=== PATIENT | female | born 1985 | race Caucasian/White ===

== ENCOUNTER 2022-03-09 17:21 | Emergency (ER) | payer BC, MEDICAID, SELFPAY ==
[2022-03-09 17:22] VITALS: BP 139/82; PULSE 103; RESP 16; TEMP 37.4; O2SAT 98; BMI 41.3
--- NOTE | 2022-03-09 18:12 | EDS_ITS ---
HPI <TRACE Noriega - Last Filed: 03/09/22 18:32> History of Present Illness Chief Complaint: GI Bleed Narrative Narrative: 36-year-old female with no significant medical history presents to the emergency department with blood in her stool today. Patient states that she went this morning, there was blood on the paper, she then went several hours later there was even more blood on the paper with some streaks in her stool. Patient denies any abdominal pain. Patient denies any history of being constipated recently or anal trauma. Patient thinks that sometimes she may have a hemorrhoid however she is unsure. After the second time she said there was more blood on the toilet paper so she was concerned and is here for evaluation PFSH <TRACE Noriega - Last Filed: 03/09/22 18:32> PFSH Allergy/AdvReac Type Severity Reaction Status Date / Time Sulfa (Sulfonamide Allergy Rash Verified 03/09/22 17:22 Antibiotics) Social History Smoking Status: Never smoker ROS <TRACE Noriega - Last Filed: 03/09/22 18:32> ROS ED ROS Narrative Constitutional: Negative for fever, chills, weight loss, weakness Eyes: Negative for vision loss, vision change, double vision ENT: Negative for any sore throat, ear pain, congestion Cardiovascular: Negative for any chest pain, tightness, palpitations Respiratory: Negative for any cough, sputum production, hemoptysis, dyspnea, dyspnea on exertion, orthopnea Gastrointestinal: Negative for any abdominal pain, nausea, vomiting, diarrhea, constipation, blood in vomit. Positive for blood in stool, blood in the toilet paper : Negative for any urinary frequency, dysuria, retention, blood in urine Muscle skeletal: Negative for any muscle joint pain, stiffness, myalgias, arthralgias, neck pain, back pain Neurological: Negative for any headache, syncope, numbness or tingling, dizziness Skin: Negative for any rashes, lumps, itching, abrasions, lacerations Psychiatric: Negative for any depression, anxiety, stress, suicidal ideation, homicidal ideation Hematologic: Negative for any easy bruising, excessive bruising, easy bleeding Allergies: Negative for any eczema, hives, rash EXAM <TRACE Noriega - Last Filed: 03/09/22 18:32> Physical Exam Narrative Exam Narrative: Vital signs reviewed. HEET: Head normocephalic atraumatic, TMs clear bilaterally. Posterior pharynx is clear, moist mucous membranes. Nares clear bilaterally. Neck: Supple with no lymphadenopathy or tenderness. No signs of meningismus, negative jolt sign. Cardiac: Regular rate and rhythm no murmurs gallops or rubs, equal peripheral pulses bilaterally. Respiratory: Lungs clear to auscultation bilaterally. No chest tenderness. Abdomen: Soft, nontender, nondistended. No abdominal bruit or pulsatile masses. No hepatosplenomegaly Extremities: No peripheral edema, no signs of gross trauma or deformity. Active full range of motion of all extremities. Neuro: Cranial nerves II through XII intact, no focal neurological deficits. Skin: Clean dry and intact with no rash, purpura, petechiae, vesicles or pustules. Backs/flank: No CVA tenderness, no midline spinal tenderness, no deformity. Psych: Normal mood and affect. No SI, HI or acute psychosis. Rectal: Rectal exam was completed with a female nurse cloth seconds sorter, there is no dried blood, no active bleeding, there is no hemorrhoid, no thrombosed hemorrhoid. Minimal stool in the rectal vault, no fissure or mass felt. No bleeding at this time. Const Vital Signs: 03/09/22 17:22 03/09/22 18:38 Temperature 99.3 F H Temperature Source Temporal Pulse Rate 103 H 84 Respiratory Rate 16 18 Blood Pressure 139/82 H 136/80 H Blood Pressure Mean 101 Pulse Ox 98 Oxygen Delivery Method Room Air Positive well nourished and well developed General Appearance ED: well developed <Ryan Echeverria MD - Last Filed: 03/09/22 20:09> Physical Exam Const Vital Signs: 03/09/22 17:22 03/09/22 18:38 Temperature 99.3 F H Temperature Source Temporal Pulse Rate 103 H 84 Respiratory Rate 16 18 Blood Pressure 139/82 H 136/80 H Blood Pressure Mean 101 Pulse Ox 98 Oxygen Delivery Method Room Air MDM <TRACE Noriega - Last Filed: 03/09/22 18:32> [facility] MDM Narrative Medical decision making narrative: Patient appears well, patient appears nontoxic, vital signs are stable. Patient presents to the emergency department with concerns for rectal bleeding. At this time, patient's physical examination was grossly unremarkable. Patient rectal exam was completed, there is no signs or symptoms of any blood, dried blood, no pathology noted. Patient did have some breakdown superior to the rectum, this could be from excessive wiping. The patient did state that she wiped continuously throughout the day. I believe that some of the bleeding may have come from that. Patient will follow up with gastroenterology for any worsening symptoms. At this time, patient safe for discharge. <Ryan Echeverria MD - Last Filed: 03/09/22 20:09> [facility] MDM Narrative Medical decision making narrative: I have personally performed a face to face assessment of the patient and have reviewed the SAÚL Note. I performed a substantive portion of the visit including all aspects of the following. My pulido findings include: History is rectal bleeding Medical Decision Making nurse practitioner performed rectal examination. No gross bleeding. Use [id number] Preparation H for hemorrhoid versus anal fissure. Follow-up gastroenterology. Discharge. Other additions or changes: [None] Discharge Plan Triage Chief Complaint: GI Bleed ED Midlevel Provider: Binh Sullivan ED Provider: Ryan Echeverria Dx/Rx/DC Orders Clinical Impression: History of rectal bleeding Instructions: Understanding Rectal Bleeding, ED Lower GI Bleeding (Stable) Primary Care Provider: Lia Kowalski Referrals: Lia Kowalski MD [Primary Care Provider] - Patricio Haney DO [STAFF PHYSICIAN] - Print Language: Welsh Disposition Disposition: Home, Self Care Discharge Date/Time: 03/09/22 18:38
[2022-03-09 18:38] VITALS: BP 136/80; PULSE 84; RESP 18
== END 2022-03-09 18:38 | disposition home or self-care (01) ==
PROVIDERS: Emergency Provider Emergency Medicine; PCP Family Medicine; Visit Provider Emergency Medicine
DX: K62.5 Hemorrhage of anus and rectum (principal)
CPT/HCPCS: 99282